=== PATIENT | male | born 1955 | race Caucasian/White ===

== ENCOUNTER 2019-10-30 09:53 | Day surgery (SDC) | payer OTHER ==
[2019-10-10 15:22] VITALS: BMI 24.3
[2019-10-30] MEDS ORDERED: OFLOXACIN 0.3% OPHTHALMIC SOLUTION 5 ML BOTTLE ONE (10:31)
[2019-10-30] MEDS ORDERED: KETOROLAC TROMETHAMINE 0.5% EYE DROP 1 DROP DROPS ONE (10:31)
[2019-10-30] MEDS ORDERED: PHENYLEPHRINE 2.5% OPHTH SOLN 15 ML BOTTLE ONE (10:31)
[2019-10-30] MEDS ORDERED: TROPICAMIDE 1% OPHTH SOLN 15 ML BOTTLE ONE (10:31)
[2019-10-30] MEDS ORDERED: CYCLOPENTOLATE HCL 1% OPHTH SOLN 2 ML BOTTLE ONE (10:31)
[2019-10-30] MEDS: OFLOXACIN 0.3% OPHTHALMIC SOLUTION 5 ML BOTTLE OD SCH ×5 (11:15→11:35)
[2019-10-30] MEDS: TROPICAMIDE 1% OPHTH SOLN 15 ML BOTTLE OD SCH ×5 (11:15→11:35)
[2019-10-30] MEDS: KETOROLAC TROMETHAMINE 0.5% EYE DROP 1 DROP DROPS OD SCH ×5 (11:15→11:35)
[2019-10-30] MEDS: CYCLOPENTOLATE HCL 1% OPHTH SOLN 2 ML BOTTLE OD SCH ×5 (11:15→11:35)
[2019-10-30] MEDS: PHENYLEPHRINE 2.5% OPHTH SOLN 15 ML BOTTLE OD SCH ×5 (11:15→11:35)
[2019-10-30] MEDS ORDERED: MIDAZOLAM HCL 2 MG/2 ML SINGLE DOSE VIAL ONE (12:26)
[2019-10-30] MEDS ORDERED: ACETAMINOPHEN 325 MG TABLET (FP) PO PRN (13:01)
[2019-10-30 13:12] VITALS: BP 133/73; PULSE 60; TEMP 98
--- NOTE | 2019-10-30 19:28 | OP ---
DATE OF OPERATION: 10/30/2019 PREOPERATIVE DIAGNOSIS: Cataract, right eye. POSTOPERATIVE DIAGNOSIS: Cataract, right eye. PROCEDURE: Cataract extraction via phacoemulsification with insertion of posterior chamber lens implant, right eye. SURGEON: Lang Montana MD. CHARGE MASTER COORDINATOR: Parul Cross MD. ANESTHESIA: Topical with sedation. ESTIMATED BLOOD LOSS: Less than 1 mL. COMPLICATIONS: None. SPECIMENS: None. PROCEDURE: The patient is identified in the holding area. After all risks, benefits, and alternatives were explained to the patient, informed consent was obtained. The right eye was marked with a marking pen. The patient then entered the operating room on an eye stretcher. After a formal timeout was performed, topical tetracaine eyedrops were instilled onto the right eye. The right eye was then prepped and draped in the usual sterile fashion. Eyelid speculum was placed beneath the eyelids of the right eye. A supratemporal paracentesis incision was created using 15-degree blade. Topical preservative-free epinephrine and preservative-free lidocaine was then injected into the anterior chamber. Viscoelastic was injected into the anterior chamber, and a 2.4-mm keratome blade was then used to make an infratemporal incision. A 360-degree continuous curvilinear capsulorrhexis was then created using bent cystotome and Utrata forceps. Hydrodissection was performed using balanced saline solution on the cannula. Phacoemulsification was then introduced, disassembled and removed the nucleus in its entirety. Irrigation/aspiration was then used to remove any remaining cortical material from the eye. The capsular bag was reformed using viscoelastic. An Ed model SN60WF with a power of 23.0 diopters, serial number [id number] was inspected and found to be defect free and injected into the capsular bag. Irrigation/aspiration was then used to remove any remaining viscoelastic from the eye. All wounds were hydrated with balanced saline solution and noted to be watertight. The anterior chamber was deep. The eye had a red reflex. The lens was perfectly centered in the capsular bag, and the eye had an adequate pressure. Then topical antibiotic eyedrops and antibiotic ointment was then administered to the right eye. The eyelid speculum was then removed from the right eye. The right eye was then shielded. The patient tolerated the procedure well and right the operating room in stable condition to follow up in the eye clinic the next morning at 10 o'clock. LANG MONTANA M.D. LORETTA/[id number]
== END 2019-10-30 13:33 | disposition home or self-care (01) ==
LOC: EDBD → FASU 09:53 → EDBD 13:00 → FASU 13:33
PROVIDERS: ATTEND Ophthalmology
PROC: 08RJ3JZ Replacement of Right Lens with Synthetic Substitute, Percutaneous Approach (ICD-10-PCS; principal; 2019-10-30 12:36)
DX: H26.9 Unspecified cataract (principal)
CPT/HCPCS: 82962